=== PATIENT | female | born 1960 | race Caucasian/White ===

== ENCOUNTER 2022-11-09 16:03 | Emergency (ER) | payer BC ==
[2022-11-09 16:18] VITALS: RESP 20; BMI 34.1
[2022-11-09] MEDS ORDERED: LACTATED RINGERS SOLUTION 1000 ML INFUS.BAG IV ONE (18:26)
[2022-11-09 20:51] LABS: BASO % 0.2 % (0-2.0); EOS % 0.7 % (0-4.5); HEMATOCRIT 43.3 % (32.4-45.2); HEMOGLOBIN 14.7 GM/dL (10.7-15.3); LYMPH % 17.2 % (8-40); MCH 30.6 pg (25.7-33.7); MCHC 33.9 g/dl (32.0-36.0); MEAN CELL VOLUME 90.4 fl (80-96); MEAN PLT VOLUME 7.6 fl (7.5-11.1); MONO % 10.3 % (3.8-10.2); NEUT % 71.6 % (42.8-82.8); PLATELET COUNT 277 10^3/uL (134-434); RBC 4.79 M/mm3 (3.60-5.2); RDW 13.7 % (11.6-15.6); WHITE BLOOD COUNT 7.5 K/mm3 (4.0-10.0)
[2022-11-09 20:56] LABS: EPI CELLS 36 /uL (0-25.1); HYALINE CASTS 6 /uL (0-3.1); URINE APPEARANCE CLEAR; URINE BACTERIA 1490 /uL (0-1359); URINE BILIRUBIN NEGATIVE (NEGATIVE); URINE COLOR DK YELLOW; URINE GLUCOSE (UA) TRACE (NEGATIVE); URINE KETONE TRACE (NEGATIVE); URINE LEUK ESTERASE 1+ (NEGATIVE); URINE NITRITE NEGATIVE (NEGATIVE); URINE PROTEIN 1+ (NEGATIVE); URINE RBC 36 /uL (0-23.9); URINE WBC 85 /uL (0-25.8)
[2022-11-09 21:13] LABS: ALBUMIN 3.8 g/dl (3.4-5.0); CALCIUM 8.6 mg/dL (8.5-10.1); MAGNESIUM 2.6 mg/dL (1.8-2.4)
[2022-11-09 21:18] LABS: BILIRUBIN,TOTAL 0.4 mg/dL (0.2-1)
[2022-11-09 23:14] VITALS: BP 140/71; PULSE 75; TEMP 98.6
== END 2022-11-10 00:10 | disposition home or self-care (01) ==
LOC: JER 16:03
DX: R42 Dizziness and giddiness (principal); R11.10 Vomiting, unspecified; E86.0 Dehydration
CPT/HCPCS: 0241U-QW; 36415; 80053; 81003; 83735; 84484; 85025; 87086; 93005; 93010; 99284-25